=== PATIENT | male | born 1990 | race Two or more races ===

== ENCOUNTER 2018-01-13 18:39 | Emergency (ER) | payer BC ==
[2018-01-13 18:55] VITALS: BP 132/78
[2018-01-13] MEDS ORDERED: Ondansetron 4 MG/2 ML SDV IVPUSH ONE (19:07)
[2018-01-13] MEDS ORDERED: Sodium Chloride 0.9% 1,000 ML IV ONE (19:07)
--- NOTE | 2018-01-13 19:08 | EDM.PDOC ---
ED HPI GENERAL MEDICAL PROBLEM - General Chief Complaint: Abdominal Pain Stated Complaint: STOMACH PAIN AND VOMITTING Time Seen by Provider: 01/13/18 19:08 Source of Information: Reports: Patient - History of Present Illness INITIAL COMMENTS - FREE TEXT/NARRATIVE: HISTORY AND PHYSICAL: History of present illness: [Patient presents with abdominal pain left lower quadrant 4 out of 10 nonradiating worsened with deep palpation he has had some vomiting and diarrhea episodes no fever chills sweats no chest pain shortness breath headache dizziness palpitation no urine symptoms Symptoms began this morning and have increased throughout the day ] Review of systems: As per history of present illness and below otherwise all systems reviewed and negative. Past medical history: As per history of present illness and as reviewed below otherwise noncontributory. Surgical history: As per history of present illness and as reviewed below otherwise noncontributory. Social history: No reported history of drug or alcohol abuse. Family history: As per history of present illness and as reviewed below otherwise noncontributory. Physical exam: HEENT: Atraumatic, normocephalic, pupils reactive, negative for conjunctival pallor or scleral icterus, mucous membranes moist, throat clear, neck supple, nontender, trachea midline. Lungs: Clear to auscultation, breath sounds equal bilaterally, chest nontender. Heart: S1S2, regular, negative for clicks, rubs, or JVD. Abdomen: Soft, nondistended, nontender on the right lower quadrant no guarding or rebound is tender on deep palpation of the left lower quadrant again no guarding or rebound Negative for masses or hepatosplenomegaly. Negative for costovertebral tenderness. Pelvis: Stable nontender. Genitourinary: Deferred. Rectal: Deferred. Extremities: Atraumatic, negative for cords or calf pain. Neurovascular unremarkable. Neuro: Awake, alert, oriented. Cranial nerves II through XII unremarkable. Cerebellum unremarkable. Motor and sensory unremarkable throughout. Exam nonfocal. Diagnostics: [CBC CMP UA] Therapeutics: [Liter normal saline bolus Toradol 30 mg IV Zofran 8 mg IV Cipro 500 by mouth twice a day #20 no refill Zofr an ] Impression: [Gastroenteritis vomiting improved Abdominal pain -left lower quadrant-consistent with a clinical diverticulitis Definitive disposition and diagnosis as appropriate pending reevaluation and review of above. Abdomen Pain Score (Numeric/FACES): 8 - Related Data Allergies Allergy/AdvReac Type Severity Reaction Status Date / Time guaifenesin [From Robitussin] Allergy Airway Verified 01/13/18 18:57 Tightness Home Meds: Home Meds . [No Known Home Meds] 10/30/15 [History] Past Medical History - Past Health History Medical/Surgical History: Denies Medical/Surgical History - Past Surgical History HEENT Surgical History: Reports: Oral Surgery Social & Family History - Family History Family Medical History: Noncontributory - Tobacco Use Smoking Status *Q: Never Smoker - Caffeine Use Caffeine Use: Reports: None - Recreational Drug Use Recreational Drug Use: No ED ROS GENERAL - Review of Systems Review Of Systems: See Below ED EXAM, GENERAL - Physical Exam Exam: See Below Course - Vital Signs Last Recorded V/S: Last Vital Signs Temp 99.8 F 01/13/18 18:53 Pulse 100 01/13/18 18:53 Resp 18 01/13/18 18:53 BP 132/78 01/13/18 18:53 Pulse Ox 97 01/13/18 18:53 - Orders/Labs/Meds Orders: Active Orders 24 hr Category Date Time Status Abdomen Pelvis wo Cont [CT] Stat Exams 01/13/18 20:16 Taken UA W/MICROSCOPIC [URIN] Stat Lab 01/13/18 19:50 Ordered Labs: Laboratory Tests 01/13/18 01/13/18 01/13/18 Range/Units 19:15 19:15 19:50 WBC 10.14 (4.0-11.0) K/uL RBC 5.46 (4.50-5.90) M/uL Hgb 16.6 (13.0-17.0) g/dL Hct 47.1 (38.0-50.0) % MCV 86.3 (80.0-98.0) fL MCH 30.4 (27.0-32.0) pg MCHC 35.2 (31.0-37.0) g/dL RDW Std Deviation 39.6 (28.0-62.0) fl RDW Coeff of Wes 13 (11.0-15.0) % Plt Count 219 (150-400) K/uL MPV 9.20 (7.40-12.00) fL Neut % (Auto) 77.7 (48.0-80.0) % Lymph % (Auto) 9.8 L (16.0-40.0) % [place] % (Auto) 11.1 (0.0-15.0) % Eos % (Auto) 1.2 (0.0-7.0) % Baso % (Auto) 0.2 (0.0-1.5) % Neut # (Auto) 7.9 H (1.4-5.7) K/uL Lymph # (Auto) 1.0 (0.6-2.4) K/uL [place] # (Auto) 1.1 H (0.0-0.8) K/uL Eos # (Auto) 0.1 (0.0-0.7) K/uL Baso # (Auto) 0.0 (0.0-0.1) K/uL Nucleated RBC % 0.0 /100WBC Nucleated RBCs # 0 K/uL Sodium 140 (136-148) mmol/L Potassium 3.6 (3.5-5.1) mmol/L Chloride 104 (98-107) mmol/L Carbon Dioxide 25.5 (21.0-32.0) mmol/L BUN 18 (7.0-18.0) mg/dL Creatinine 1.5 H (0.8-1.3) mg/dL Est Cr Clr Drug Dosing 75.96 mL/min Estimated GFR (MDRD) 56.1 ml/min Glucose 89 (74-106) mg/dL Calcium 9.5 (8.5-10.1) mg/dL Total Bilirubin 0.6 (0.2-1.0) mg/dL AST 19 (15-37) IU/L ALT 38 (14-63) IU/L Alkaline Phosphatase 50 (46-116) U/L Total Protein 7.8 (6.4-8.2) g/dL Albumin 4.5 (3.4-5.0) g/dL Globulin 3.3 (2.0-3.5) g/dL Albumin/Globulin Ratio 1.4 (1.3-2.8) Lipase 81 (73-393) U/L Urine Color YELLOW Urine Appearance CLEAR Urine pH 6.0 (5.0-8.0) Ur Specific [place] 1.015 (1.001-1.035) Urine Protein NEGATIVE (NEGATIVE) mg/dL Urine Glucose (UA) NEGATIVE (NEGATIVE) mg/dL Urine Ketones NEGATIVE (NEGATIVE) mg/dL Urine Occult Blood NEGATIVE (NEGATIVE) Urine Nitrite NEGATIVE (NEGATIVE) Urine Bilirubin NEGATIVE (NEGATIVE) Urine Urobilinogen 0.2 (<2.0) EU/dL Ur Leukocyte Esterase NEGATIVE (NEGATIVE) Urine RBC 0-1 (0-2/HPF) Urine WBC 0-2 (0-5/HPF) Ur Epithelial Cells RARE (NONE-FEW) Urine Bacteria FEW (NEGATIVE) Meds: Medications Discontinued Medications Generic Name Dose Route Start Last Admin Trade Name Freq PRN Reason Stop Dose Admin Sodium Chloride 1,000 mls @ 999 mls/hr 01/13/18 19:07 01/13/18 19:21 Normal Saline IV 01/13/18 20:07 999 mls/hr STAT ONE Administration Ketorolac Tromethamine 30 mg 01/13/18 19:14 01/13/18 19:25 Toradol IVPUSH 01/13/18 19:15 30 mg ONETIME ONE Administration Ondansetron HCl 8 mg 01/13/18 19:07 01/13/18 19:22 Zofran IVPUSH 01/13/18 19:08 8 mg ONETIME ONE Administration Departure - Departure Time of Disposition: 21:15 Disposition: Home, Self-Care 01 Clinical Impression: Gastroenteritis, Abdominal pain - Discharge Information Referrals: PCP,None [Primary Care Provider] - Forms: ED Department Discharge Additional Instructions: Medication as prescribed Return if symptoms persist or worsen Follow-up with primary care in 2 weeks sooner as needed [facility] - Primary Care [address] [place] [address] The following information is given to patients seen in the emergency department who are being discharged to home. This information is to outline your options for follow-up care. We provide all patients seen in our emergency department with a follow-up referral. The need for follow-up, as well as the timing and circumstances, are variable depending upon the specifics of your emergency department visit. If you don't have a primary care physician on staff, we will provide you with a referral. We always advise you to contact your personal physician following an emergency department visit to inform them of the circumstance of the visit and for follow-up with them and/or the need for any referrals to a consulting specialist. The emergency department will also refer you to a specialist when appropriate. This referral assures that you have the opportunity for follow-up care with a specialist. All of these measure are taken in an effort to provide you with optimal care, which includes your follow-up. Under all circumstances we always encourage you to contact your private physician who remains a resource for coordinating your care. When calling for follow-up care, please make the office aware that this follow-up is from your recent emergency room visit. If for any reason you are refused follow-up, please contact the [facility] emergency department at and asked to speak to the emergency department charge nurse. - My Orders Last 24 Hours: My Active Orders 01/13/18 19:50 UA W/MICROSCOPIC [URIN] Stat 01/13/18 20:16 Abdomen Pelvis wo Cont [CT] Stat - Assessment/Plan Last 24 Hours: My Active Orders 01/13/18 19:50 UA W/MICROSCOPIC [URIN] Stat 01/13/18 20:16 Abdomen Pelvis wo Cont [CT] Stat
[2018-01-13] MEDS ORDERED: Ketorolac 30 MG/ML SDV IVPUSH ONE (19:14)
--- NOTE | 2018-01-16 15:16 | CT ---
EXAM DATE: 01/13/18 PATIENT'S AGE: 27 Patient: RAYMOND CARREON Facility: [place], [place] Site . Site : 1990 Study: CT Abdomen/Pelvis [id number]/10/2018 8:48:51 PM Ordering Physician: Bonnie Joseph Final Report: INDICATION: Abdominal pain, nausea, vomiting for 1 day TECHNIQUE: CT Abdomen and pelvis without i.v. contrast. Coronal and sagittal reformats were obtained. CONTRAST: None COMPARISON: None FINDINGS: Lower chest: Unremarkable. Liver: Unremarkable. Spleen: Unremarkable. Pancreas: Unremarkable. Gallbladder: Unremarkable. Kidney: Unremarkable. No kidney or ureteral stones or obstruction seen. Adrenal: Unremarkable. Bowel: Unremarkable. The appendix is normal in appearance and size. Vascular: Unremarkable. Lymph: Unremarkable. Peritoneum: Unremarkable. No pneumoperitoneum is seen. No significant ascites is noted. Pelvis: Unremarkable. Soft tissue: Unremarkable. Bone: Unremarkable for age. IMPRESSION: 1. Unremarkable with no CT correlate for the patient`s symptoms seen. Please note that all CT scans at this facility use dose modulation, iterative reconstruction, and/or weight-based dosing when appropriate to reduce radiation dose to as low as reasonably achievable. Dictated by: Bhaskar Del Rio MD @ 01/13/2018 21:02:48 (Electronic Signature) Report Signed by Proxy. [facility] CENTERChristel
== END 2018-01-13 21:40 | disposition home or self-care (01) ==
LOC: MW.ED 18:39
DX: K52.9 Noninfective gastroenteritis and colitis, unspecified (principal); Z88.8 Allergy status to other drugs, medicaments and biological substances
CPT/HCPCS: 74176; 80053; 81001; 83690; 85025; 96361; 96374; 96375; 99284; J1885; J2405; J7040

== ENCOUNTER 2018-03-07 12:35 | Emergency (ER) | payer OTHER, BC ==
[2018-03-07] MEDS ORDERED: Diphtheria,Pertussis(Acell),Tetanus Vaccine 0.5 ML Syringe IM ONE (12:48)
--- NOTE | 2018-03-07 12:48 | EDM.PDOC ---
ED HPI GENERAL MEDICAL PROBLEM - General Chief Complaint: Laceration Stated Complaint: RIGHT LEG CUT Time Seen by Provider: 03/07/18 12:36 Source of Information: Reports: Patient History Limitations: Reports: No Limitations - History of Present Illness INITIAL COMMENTS - FREE TEXT/NARRATIVE: HISTORY AND PHYSICAL: History of present illness: Patient is a 28-year-old male who presents to the emergency room with complaints of a laceration to his right anterior ankle. He states he was using a box office manager to open a large box when it slipped and cut his lower extremity. He is unsure of his last tetanus update. Review of systems: As per history of present illness and below otherwise all systems reviewed and negative. Past medical history: As per history of present illness and as reviewed below otherwise noncontributory. Surgical history: As per history of present illness and as reviewed below otherwise noncontributory. Social history: No reported history of drug or alcohol abuse. Family history: As per history of present illness and as reviewed below otherwise noncontributory. Physical exam: General: Well-developed and well-nourished 28-year-old male. Alert and oriented. Nontoxic appearing and in no acute distress. HEENT: Atraumatic, normocephalic, pupils equal and reactive bilaterally, negative for conjunctival pallor or scleral icterus, mucous membranes moist, throat clear, neck supple, nontender, trachea midline. No drooling or trismus noted. No meningeal signs Lungs: Clear to auscultation, breath sounds equal bilaterally, chest nontender. Heart: S1S2, regular rate and rhythm without overt murmur Abdomen: Soft, nondistended, nontender. Negative for masses or hepatosplenomegaly. Negative for costovertebral tenderness. Pelvis: Stable nontender. Genitourinary: Deferred. Rectal: Deferred. Skin: 3 cm laceration to the anterior portion of the right upper ankle. Linear with in the subcutaneous fat. Intact, warm, dry. No lesions or rashes noted. Extremities: Atraumatic, negative for cords or calf pain. Neurovascular unremarkable. Neuro: Awake, alert, oriented. Cranial nerves II through XII unremarkable. Cerebellum unremarkable. Motor and sensory unremarkable throughout. Exam nonfocal. Notes: Area was cleansed with chlorhexidine and wound wash was completed. 1% lidocaine was used to anesthetize the area, 3 mL's. Usual and customary procedures were followed for suture placement. 4-0 nylon, #5 sutures were placed. Patient tolerated well. Wound care was reviewed and discussed. Signs and symptoms would prompt him to return to the emergency room were reviewed. He voices understanding Griebel to plan of care. Denies any further questions or concerns at this time. Diagnostics: None Therapeutics: Tdap, 1% lidocaine Prescription: None Impression: Laceration Plan: 1 Keep the area clean and dry. Continue to monitor for signs of infection. Sutures to be removed in 7-10 days. 2. Tylenol and/or ibuprofen as needed for pain management. 3. Follow-up with your primary care provider in the next 1-2 days. Return to the ED as needed and as discussed. Definitive disposition and diagnosis as appropriate pending reevaluation and review of above. Laceration above R ankle Pain Score (Numeric/FACES): 1 - Related Data Allergies Allergy/AdvReac Type Severity Reaction Status Date / Time guaifenesin [From Robitussin] Allergy Airway Verified 03/07/18 12:47 Tightness Home Meds: Home Meds . [No Known Home Meds] 10/30/15 [History] Past Medical History - Past Health History Medical/Surgical History: Denies Medical/Surgical History - Past Surgical History HEENT Surgical History: Reports: Oral Surgery Social & Family History - Family History Family Medical History: Noncontributory - Caffeine Use Caffeine Use: Reports: None ED ROS GENERAL - Review of Systems Review Of Systems: ROS reveals no pertinent complaints other than HPI. ED EXAM, SKIN/RASH Exam: See Below (See dictation) ED SKIN PROCEDURES - Laceration/Wound Repair right ankle Lac/Wound length In cm: 3 Appearance: Subcutaneous, Linear Distal NVT: Neuro & Vascular Intact, No Tendon Injury Anesthetic Type: Local Local Anesthesia - Lidocaine (Xylocaine): 1% Plain Local Anesthetic Volume: 3cc Skin Prep: Chlorhexidine (Hibiciens), Saline, Sterile Drape Exploration/Debridement/Repair: Wound Explored, In a Bloodless Field, No Foreign Material Found Suture Size: 4-0 # of Sutures: 5 Suture Type: Nylon Sterile Dressing Applied: Provider Tetanus Status Addressed: Yes Complications: No Course - Vital Signs Last Recorded V/S: Last Vital Signs Temp 99.1 F 03/07/18 12:45 Pulse 92 03/07/18 12:45 Resp 16 03/07/18 12:45 BP 145/72 H 03/07/18 12:45 Pulse Ox 96 03/07/18 12:45 - Orders/Labs/Meds Orders: Active Orders 24 hr Category Date Time Status Vaccines to be Administered [RC] PER UNIT ROUTINE Care 03/07/18 12:48 Active Meds: Medications Discontinued Medications Generic Name Dose Route Start Last Admin Trade Name Freq PRN Reason Stop Dose Admin Diphtheria/Tetanus/Acell Pertussis 0.5 ml 03/07/18 12:48 Adacel IM 03/07/18 12:49 .ONCE ONE Lidocaine HCl 5 ml 03/07/18 12:48 Xylocaine-Mpf 1% INJECT 03/07/18 12:49 ONETIME ONE Departure - Departure Time of Disposition: 13:06 Disposition: Home, Self-Care 01 Clinical Impression: Laceration - Discharge Information Instructions: Laceration Care, Adult, [id number] Referrals: PCP,None [Primary Care Provider] - Forms: ED Department Discharge Additional Instructions: The following information is given to patients seen in the emergency department who are being discharged to home. This information is to outline your options for follow-up care. We provide all patients seen in our emergency department with a follow-up referral. The need for follow-up, as well as the timing and circumstances, are variable depending upon the specifics of your emergency department visit. If you don't have a primary care physician on staff, we will provide you with a referral. We always advise you to contact your personal physician following an emergency department visit to inform them of the circumstance of the visit and for follow-up with them and/or the need for any referrals to a consulting specialist. The emergency department will also refer you to a specialist when appropriate. This referral assures that you have the opportunity for follow-up care with a specialist. All of these measure are taken in an effort to provide you with optimal care, which includes your follow-up. Under all circumstances we always encourage you to contact your private physician who remains a resource for coordinating your care. When calling for follow-up care, please make the office aware that this follow-up is from your recent emergency room visit. If for any reason you are refused follow-up, please contact the [facility] Emergency Department at and asked to speak to the emergency department charge nurse. [facility] [address] [place] [id number] 1 Keep the area clean and dry. Continue to monitor for signs of infection. Sutures to be removed in 7-10 days. 2. Tylenol and/or ibuprofen as needed for pain management. 3. Follow-up with your primary care provider in the next 1-2 days. Return to the ED as needed and as discussed. - My Orders Last 24 Hours: My Active Orders 03/07/18 12:48 Vaccines to be Administered [RC] PER UNIT ROUTINE - Assessment/Plan Last 24 Hours: My Active Orders 03/07/18 12:48 Vaccines to be Administered [RC] PER UNIT ROUTINE
[2018-03-07 13:38] VITALS: BP 128/70
== END 2018-03-07 13:25 | disposition home or self-care (01) ==
LOC: MW.ED 12:35
DX: S91.011A Laceration without foreign body, right ankle, initial encounter (principal); Z23 Encounter for immunization; Z88.8 Allergy status to other drugs, medicaments and biological substances; W26.0XXA Contact with knife, initial encounter; Y99.0 Civilian activity done for income or pay
CPT/HCPCS: 90471; 90715; 99282-25

== ENCOUNTER 2018-12-19 08:35 | Emergency (ER) | payer BC, OTHER ==
[2018-12-19 08:46] VITALS: BP 137/75
[2018-12-19] MEDS ORDERED: Tetracaine HCl/PF 0.5% 4 ML Bottle EYEBOTH ONE (08:49)
[2018-12-19] MEDS ORDERED: Tetracaine HCl/PF 0.5% 4 ML Bottle ONE (08:50)
--- NOTE | 2018-12-19 09:24 | EDM.PDOC ---
ED HPI GENERAL MEDICAL PROBLEM - General Chief Complaint: Eye Problems Stated Complaint: EYE COMPLAINT Time Seen by Provider: 12/19/18 09:00 - History of Present Illness INITIAL COMMENTS - FREE TEXT/NARRATIVE: 28 y/o male here for left eye pain. 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 Feels like there's a foreign object. Injected conjunctiva bilaterally. Movement intact. Sensitive to light. Has been able to wear contact lenses due to eye pain. No discharge. left eye Pain Score (Numeric/FACES): 8 - Related Data Allergies Allergy/AdvReac Type Severity Reaction Status Date / Time guaifenesin [From Robitussin] Allergy Airway Verified 12/19/18 08:44 Tightness Home Meds: Home Meds Erythromycin Base [Erythromycin 0.5% Ophth Oint] 1 applic TOP BID #1 tube [Rx] Past Medical History - Past Health History Medical/Surgical History: Denies Medical/Surgical History - Infectious Disease History Infectious Disease History: Reports: Chicken Pox - Past Surgical History HEENT Surgical History: Reports: Oral Surgery Social & Family History - Family History Family Medical History: Noncontributory Oncologic: Reports: Ovarian - Tobacco Use Smoking Status *Q: Current Every Day Smoker Years of Tobacco use: 10 Packs/Tins Daily: 0.5 - Caffeine Use Caffeine Use: Reports: None - Recreational Drug Use Recreational Drug Use: No ED ROS GENERAL - Review of Systems Review Of Systems: ROS reveals no pertinent complaints other than HPI. ED EXAM GENERAL W FULL EYE - Physical Exam Exam: See Below General Appearance: Alert, WD/WN, No Apparent Distress Eyelids: Bilateral: Normal Appearance (no foreign body) Conjunctiva & Sclera: Bilateral: Injected Cornea Exam: Left: Cloudy Cornea Extraocular Movements: Bilateral: Intact Pupils: Normal Accommodation Pupillary Reaction: Bilateral: Brisk Respiratory/Chest: No Respiratory Distress Cardiovascular: Regular Rate, Rhythm Course - Vital Signs Text/Narrative:: No foreign objects in eyes. There is a small right corneal abrasion at 6 o' clock. Last Recorded V/S: Last Vital Signs Temp 36.6 C 12/19/18 08:42 Pulse 91 12/19/18 08:42 Resp 16 12/19/18 08:42 BP 137/75 12/19/18 08:42 Pulse Ox 98 12/19/18 08:42 - Orders/Labs/Meds Meds: Medications Discontinued Medications Generic Name Dose Route Start Last Admin Trade Name Taz PRN Reason Stop Dose Admin Tetracaine HCl 1 ml 12/19/18 08:49 12/19/18 08:55 Tetracaine 0.5% Steri-Unit Kiley EYEBOTH 12/19/18 08:50 1 ml ASDIRECTED ONE Administration Tetracaine HCl Confirm 12/19/18 08:50 12/19/18 08:59 Tetracaine 0.5% Steri-Unit Kiley Administered 12/19/18 08:51 Not Given Dose 4 ml .ROUTE .STK-MED ONE Departure - Departure Time of Disposition: 09:21 Disposition: Home, Self-Care 01 Clinical Impression: Corneal abrasion - Discharge Information *PRESCRIPTION DRUG MONITORING PROGRAM REVIEWED*: Not Applicable *COPY OF PRESCRIPTION DRUG MONITORING REPORT IN PATIENT TALISHA: Not Applicable Prescriptions: Erythromycin Base [Erythromycin 0.5% Ophth Oint] 1 applic TOP BID #1 tube Instructions: Corneal Abrasion, [id number] Referrals: PCP,Unknown [Primary Care Provider] - Forms: ED Department Discharge Additional Instructions: The following information is given to patients seen in the emergency department who are being discharged to home. This information is to outline your options for follow-up care. We provide all patients seen in our emergency department with a follow-up referral. The need for follow-up, as well as the timing and circumstances, are variable depending upon the specifics of your emergency department visit. If you don't have a primary care physician on staff, we will provide you with a referral. We always advise you to contact your personal physician following an emergency department visit to inform them of the circumstance of the visit and for follow-up with them and/or the need for any referrals to a consulting specialist. The emergency department will also refer you to a specialist when appropriate. This referral assures that you have the opportunity for follow-up care with a specialist. All of these measure are taken in an effort to provide you with optimal care, which includes your follow-up. Under all circumstances we always encourage you to contact your private physician who remains a resource for coordinating your care. When calling for follow-up care, please make the office aware that this follow-up is from your recent emergency room visit. If for any reason you are refused follow-up, please contact the [facility] Emergency Department at and asked to speak to the emergency department charge nurse. Follow-up with Ophthalmology today with Dr. Rush.
== END 2018-12-19 09:29 | disposition home or self-care (01) ==
LOC: MW.ED 08:35
DX: S05.02XA Injury of conjunctiva and corneal abrasion without foreign body, left eye, initial encounter (principal); F17.210 Nicotine dependence, cigarettes, uncomplicated; Z98.890 Other specified postprocedural states; Z88.8 Allergy status to other drugs, medicaments and biological substances; X58.XXXA Exposure to other specified factors, initial encounter; Y99.0 Civilian activity done for income or pay
CPT/HCPCS: 99283

== ENCOUNTER 2019-02-12 11:35 | Emergency (ER) | payer OTHER, BC ==
[2019-02-12 11:45] VITALS: BP 128/69
[2019-02-12] MEDS ORDERED: Bacitracin Oint 1 GM U/D Packet TOP ONE (11:51)
--- NOTE | 2019-02-12 12:12 | EDM.PDOC ---
ED HPI GENERAL MEDICAL PROBLEM - General Chief Complaint: Laceration Stated Complaint: LACERATION Time Seen by Provider: 02/12/19 11:38 Source of Information: Reports: Patient History Limitations: Reports: No Limitations - History of Present Illness INITIAL COMMENTS - FREE TEXT/NARRATIVE: HISTORY AND PHYSICAL: History of present illness: And is a 28-year-old male presenting to the emergency room today for a laceration on his right hand. Patient states he sustained the laceration on his right middle digit while at work this morning. He states that while he was trying to put a windshield in, his hands slipped and his middle digit was cut open on a piece of metal. He states he "cleaned it up at work" and found no debris in it. He has not taken any ibuprofen or Tylenol. Review of system As per history of present illness and below otherwise all systems reviewed and negative. Past medical history: As per history of present illness and as reviewed below otherwise noncontributory. Surgical history: As per history of present illness and as reviewed below otherwise noncontributory. Social history: See social history for further information Family history: As per history of present illness and as reviewed below otherwise noncontributory. Physical exam: General: Nourished and well-developed 28-year-old male. Alert and orientated. Nontoxic in appearance. Vital signs stable and reviewed by me. HEENT: Atraumatic, normocephalic, pupils equal and reactive bilaterally, negative for conjunctival pallor or scleral icterus, mucous membranes moist, trachea midline. No drooling or trismus noted. No meningeal signs. No hot potato voice noted. Lungs: Clear to auscultation, breath sounds equal bilaterally, chest nontender. Heart: S1S2, regular rate and rhythm without overt murmur Abdomen: Soft, nondistended, nontender. Skin: 1.5 cm laceration to the dorsal aspect of the right mid third digit below the MIP joint. Otherwise skin is intact, warm, dry. No lesions or rashes noted. Extremities: See skin, otherwise moves all extremities per self without difficulty or deficits, negative for cords or calf pain. Neurovascular unremarkable. Neuro: Awake, alert, oriented. Cranial nerves II through XII unremarkable. Cerebellum unremarkable. Motor and sensory unremarkable throughout. Exam nonfocal. Notes: Chlorhexidine and would wash was used for wound irrigation/cleansing. 1% lidocaine was used to anesthetize the area. Usual and customary procedures were used for suture placement. 4-0 nylon, #3 interrupted sutures were placed. Patient tolerated well. Bacitracin nonstick dressing was applied. Supportive care measures were reviewed and discussed. Voices understanding and is agreeable to plan of care. Denies any further questions or concerns at this time. Diagnostics: None Therapeutics: Wound care, bacitracin dressing, 1% lidocaine Prescription: None Impression: Laceration Plan: 1. Keep the area clean and dry. Continue to monitor for signs of infection. Sutures to be removed in 7-10 days. 2. Tylenol and/or ibuprofen as needed for pain management. 3. Please follow-up with your primary care provider in the next 1-2 days. Return to the ED as needed and as discussed. Definitive disposition and diagnosis as appropriate pending reevaluation and review of above. - Related Data Allergies Allergy/AdvReac Type Severity Reaction Status Date / Time guaifenesin [From Robitussin] Allergy Airway Verified 02/12/19 11:42 Tightness Home Meds: Home Meds Erythromycin Base [Erythromycin 0.5% Ophth Oint] 1 applic TOP BID #1 tube [Rx] Past Medical History - Past Health History Medical/Surgical History: Denies Medical/Surgical History - Infectious Disease History Infectious Disease History: Reports: Chicken Pox - Past Surgical History HEENT Surgical History: Reports: Oral Surgery Social & Family History - Family History Family Medical History: Noncontributory Oncologic: Reports: Ovarian - Tobacco Use Smoking Status *Q: Current Every Day Smoker Years of Tobacco use: 20 Packs/Tins Daily: 0.5 - Caffeine Use Caffeine Use: Reports: Coffee - Recreational Drug Use Recreational Drug Use: No ED ROS GENERAL - Review of Systems Review Of Systems: ROS reveals no pertinent complaints other than HPI. ED EXAM, SKIN/RASH Exam: See Below (See dictation) ED SKIN PROCEDURES - Laceration/Wound Repair Right middle digit Appearance: Subcutaneous, Linear Distal NVT: Neuro & Vascular Intact, No Tendon Injury Anesthetic Type: Local Local Anesthesia - Lidocaine (Xylocaine): 1% Plain Local Anesthetic Volume: 2cc Skin Prep: Chlorhexidine (Hibiciens), Saline, Sterile Drape Saline Irrigation (cc's): 25 Exploration/Debridement/Repair: Wound Explored, In a Bloodless Field, No Foreign Material Found Closed with: Sutures Lac/Wound length In cm: 1.5 Suture Size: 4-0 # of Sutures: 3 Suture Type: Nylon, Interrupted, Simple Drain Placement: No Sterile Dressing Applied: Provider Tetanus Status Addressed: Yes Complications: No Course - Vital Signs Last Recorded V/S: Last Vital Signs Temp 98.6 F 02/12/19 11:42 Pulse 84 02/12/19 11:42 Resp 16 02/12/19 11:42 BP 128/69 02/12/19 11:42 Pulse Ox 98 02/12/19 11:42 - Orders/Labs/Meds Meds: Medications Discontinued Medications Generic Name Dose Route Start Last Admin Trade Name Freq PRN Reason Stop Dose Admin Bacitracin 1 dose 02/12/19 11:51 02/12/19 11:56 Bacitracin Oint 1 Gm TOP 02/12/19 11:52 1 dose ONETIME ONE Administration Lidocaine HCl 5 ml 02/12/19 11:49 02/12/19 11:56 Xylocaine-Mpf 1% INJECT 02/12/19 11:50 5 ml ONETIME ONE Administration Departure - Departure Time of Disposition: 12:12 Disposition: Home, Self-Care 01 Clinical Impression: Laceration - Discharge Information Instructions: Laceration Care, Adult, [id number] Referrals: PCP,None [Primary Care Provider] - Forms: ED Department Discharge Additional Instructions: The following information is given to patients seen in the emergency department who are being discharged to home. This information is to outline your options for follow-up care. We provide all patients seen in our emergency department with a follow-up referral. The need for follow-up, as well as the timing and circumstances, are variable depending upon the specifics of your emergency department visit. If you don't have a primary care physician on staff, we will provide you with a referral. We always advise you to contact your personal physician following an emergency department visit to inform them of the circumstance of the visit and for follow-up with them and/or the need for any referrals to a consulting specialist. The emergency department will also refer you to a specialist when appropriate. This referral assures that you have the opportunity for follow-up care with a specialist. All of these measure are taken in an effort to provide you with optimal care, which includes your follow-up. Under all circumstances we always encourage you to contact your private physician who remains a resource for coordinating your care. When calling for follow-up care, please make the office aware that this follow-up is from your recent emergency room visit. If for any reason you are refused follow-up, please contact the [facility] Emergency Department at and asked to speak to the emergency department charge nurse. [facility] [address] [place] [id number] [facility] [address] [place] [id number] 1. Keep the area clean and dry. Continue to monitor for signs of infection. Sutures to be removed in 7-10 days. 2. Tylenol and/or ibuprofen as needed for pain management. 3. Please follow-up with your primary care provider in the next 1-2 days. Return to the ED as needed and as discussed.
== END 2019-02-12 12:21 | disposition home or self-care (01) ==
LOC: MW.ED 11:35
DX: S61.212A Laceration without foreign body of right middle finger without damage to nail, initial encounter (principal); F17.210 Nicotine dependence, cigarettes, uncomplicated; W26.8XXA Contact with other sharp object(s), not elsewhere classified, initial encounter; Y99.0 Civilian activity done for income or pay
CPT/HCPCS: 12001; 99282; J2001

== ENCOUNTER 2019-06-28 10:43 | Emergency (ER) | payer BC, OTHER ==
[2019-06-28] MEDS ORDERED: Ketorolac 30 MG/ML SDV IVPUSH ONE (10:54)
[2019-06-28] MEDS ORDERED: Ondansetron 4 MG/2 ML SDV IVPUSH ONE (10:54)
[2019-06-28] MEDS ORDERED: Sodium Chloride 0.9% 1,000 ML IV ONE (10:55)
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
--- NOTE | 2019-06-28 11:51 | CR ---
Chest: Frontal view of the chest was obtained. Comparison: No prior chest imaging. Heart size and mediastinum are normal. Lungs are clear. Bony structures are grossly intact. Impression: 1. Nothing acute is appreciated on frontal chest x-ray. Diagnostic code #1 This report was dictated in [place] Standard Time
--- NOTE | 2019-06-28 11:57 | CR ---
Lumbar spine: AP, lateral and coned-down lateral view centered to the lumbosacral junction were obtained. Vertebral body heights and disc spaces are maintained. Pedicles are intact. Transverse and spinous processes are intact. Sacroiliac joints are within normal limits. Minimal retrolisthesis is noted at L4-L5 which is most likely chronic. No fracture is appreciated. Impression: 1. Mild retrolisthesis at L4-L5 which is most likely chronic. 2. Nothing acute is appreciated on 3 view lumbar spine study. Diagnostic code #2 This report was dictated in [place] Standard Time
--- NOTE | 2019-06-28 11:57 | CR ---
Left knee: AP, lateral and sunrise patellar views of the left knee were obtained. Comparison: No prior knee exam. Medial and lateral joint compartments are maintained in height. No joint effusion is seen. Patellofemoral joint appears within normal limits. No fracture or other abnormality is appreciated. Impression: 1. No abnormality is identified on left knee exam. Diagnostic code #1 This report was dictated in [place] Standard Time
--- NOTE | 2019-06-28 11:57 | CT ---
CT cervical spine Technique: Multiple axial sections were obtained from above the C1 inferiorly through T3. Reconstructed sagittal and coronal images were reviewed. Comparison: No prior cervical spine imaging. Findings: Vertebral body heights and disc spaces are maintained. Minimal scattered anterior endplate osteophytes are seen. No bony central or bony neural foraminal stenosis is seen. No fracture or subluxation is seen. Impression: 1. Minimal endplate osteophytes. 2. Nothing acute is appreciated on CT study of the cervical spine. Diagnostic code #1 This report was dictated in [place] Standard Time
[2019-06-28 11:58] LABS: BLOOD UREA NITROGEN,BUN 22 mg/dL (7.0-18.0); CARBON DIOXIDE,CO2 28.6 mmol/L (21.0-32.0); CHLORIDE,CL 104 mmol/L (98-107); GLUCOSE RANDOM 80 mg/dL (74-106); POTASSIUM,K 4.3 mmol/L (3.5-5.1); SODIUM,NA 141 mmol/L (136-148)
--- NOTE | 2019-06-28 12:06 | CR ---
Left shoulder: 3 views of the left shoulder were obtained. Comparison: No prior shoulder exam. Glenohumeral joint and acromioclavicular joint appears within normal limits. No fracture or other bony abnormality is seen. Impression: 1. No abnormality is identified on left shoulder exam. Diagnostic code #1 This report was dictated in [place] Standard Time
--- NOTE | 2019-06-28 12:17 | CT ---
Head CT Technique: Multiple axial sections through the brain were obtained. Intravenous contrast was not utilized. Comparison: No prior intracranial imaging. Findings: Ventricles along with basal cisterns and sulci over the convexities appear within normal limits for the patient's age. No abnormal parenchymal densities are seen. No evidence of intracranial hemorrhage. No midline shift or mass effect is seen. Bone window settings were reviewed. Visualized paranasal sinuses show nothing acute. Visualized mastoid sinuses show nothing acute. No acute calvarial abnormality is appreciated. Impression: 1. Nothing acute is appreciated on noncontrast head CT exam. Diagnostic code #1 This report was dictated in [place] Standard Time
[2019-06-28 19:44] VITALS: BP 131/68; PULSE 82
== END 2019-06-28 12:42 | disposition home or self-care (01) ==
LOC: MW.ED 10:43
DX: S20.221A Contusion of right back wall of thorax, initial encounter (principal); S00.83XA Contusion of other part of head, initial encounter; S40.811A Abrasion of right upper arm, initial encounter; S80.212A Abrasion, left knee, initial encounter; S30.811A Abrasion of abdominal wall, initial encounter; S40.211A Abrasion of right shoulder, initial encounter; F17.210 Nicotine dependence, cigarettes, uncomplicated; Z88.8 Allergy status to other drugs, medicaments and biological substances; V43.52XA Car driver injured in collision with other type car in traffic accident, initial encounter; Y92.410 Unspecified street and highway as the place of occurrence of the external cause
CPT/HCPCS: 36415; 70450; 71045; 72100; 72125; 73030; 73562; 80053; 81001; 85025; 96361; 96374; 96375; 99285; J1885; J2405; J7030

== ENCOUNTER 2019-08-20 11:34 | Emergency (ER) | payer BC, OTHER ==
--- NOTE | 2019-08-20 12:42 | EDM.PDOC ---
ED HPI GENERAL MEDICAL PROBLEM - General Chief Complaint: Genitourinary Problem Stated Complaint: STD Time Seen by Provider: 08/20/19 12:14 Source of Information: Reports: Patient History Limitations: Reports: No Limitations - History of Present Illness INITIAL COMMENTS - FREE TEXT/NARRATIVE: HISTORY AND PHYSICAL: History of present illness: Is a 29-year-old male who presents the ED today with concern of desire for STD screening. Patient states he is concerned because his current partner had a prior boyfriend who is in custodial. Patient states that over the course of the last month he periodically has had left testicular pain with ejaculation but states that this has not been ongoing over the past 2 weeks. Patient denies any penile drainage or any current testicular pain and states he has not had pain for 2 weeks. Patient states he is concerned for STDs because his significant other has discomfort with intercourse. Patient denies any other symptoms or concerns. Patient denies fever, chills, chest pain, shortness of breath, or cough. Denies headache, neck stiff ness, change in vision, syncope, or near syncope. Denies nausea, vomiting, abdominal pain, diarrhea, constipation, or dysuria. Has not noted any blood in urine or stool. Patient has been eating and drinking appropriately. Review of systems: As per history of present illness and below otherwise all systems reviewed and negative. Past medical history: As per history of present illness and as reviewed below otherwise noncontributory. Surgical history: As per history of present illness and as reviewed below otherwise noncontributory. Social history: See social history for further information Family history: As per history of present illness and as reviewed below otherwise noncontributory. Physical exam: General: Patient is alert, oriented, and in no acute distress. Patient sitting comfortably on exam table. HEENT: Atraumatic, normocephalic, pupils equal and reactive bilaterally, negative for conjunctival pallor or scleral icterus, mucous membranes moist, TMs normal bilaterally, throat clear, neck supple, nontender, trachea midline. No drooling or trismus noted. No meningeal signs. No hot potato voice noted. Lungs: Clear to auscultation, breath sounds equal bilaterally, chest nontender. Heart: S1S2, regular rate and rhythm without overt murmur Abdomen: Soft, nondistended, nontender. Negative for masses or hepatosplenomegaly. Negative for costovertebral tenderness. Pelvis: Stable nontender. Genitourinary: Deferred. Rectal: Deferred. Skin: Intact, warm, dry. No lesions or rashes noted. Extremities: Atraumatic, negative for cords or calf pain. Neurovascular unremarkable. Neuro: Awake, alert, oriented. Cranial nerves II through XII unremarkable. Cerebellum unremarkable. Motor and sensory unremarkable throughout. Exam nonfocal. Notes: Discussed importance for follow-up with a primary care provider for additional STD screening. Voices understanding and is agreeable to plan of care. Denies any further questions or concerns at this time. Diagnostics: UA, Gonorrhea and chlamydia Therapeutics: None Prescription: None Impression: Encounter for STD screening Plan: 1. Follow-up with a primary care provider for further STD testing if you desire this as discussed. 2. Return to the ED as needed and as discussed. Definitive disposition and diagnosis as appropriate pending reevaluation and review of above. groin Pain Score (Numeric/FACES): 2 - Related Data Allergies Allergy/AdvReac Type Severity Reaction Status Date / Time guaifenesin [From Robitussin] Allergy Airway Verified 06/28/19 10:57 Tightness Home Meds: Home Meds . [No Known Home Meds] 08/20/19 [History] Past Medical History - Past Health History Medical/Surgical History: Denies Medical/Surgical History - Infectious Disease History Infectious Disease History: Reports: Chicken Pox - Past Surgical History HEENT Surgical History: Reports: Oral Surgery Social & Family History - Family History Family Medical History: Noncontributory Oncologic: Reports: Ovarian - Tobacco Use Smoking Status *Q: Current Every Day Smoker Years of Tobacco use: 12 Packs/Tins Daily: 0.5 - Caffeine Use Caffeine Use: Reports: Coffee - Recreational Drug Use Recreational Drug Use: No ED ROS GENERAL - Review of Systems Review Of Systems: Comprehensive ROS is negative, except as noted in HPI. ED EXAM, GENERAL - Physical Exam Exam: See Below (see dictation) Course - Vital Signs Last Recorded V/S: Last Vital Signs Temp 97.9 F 08/20/19 12:20 Pulse 92 08/20/19 12:20 Resp 16 08/20/19 12:20 BP 140/66 08/20/19 12:20 Pulse Ox 98 08/20/19 12:20 - Orders/Labs/Meds Orders: Active Orders 24 hr Category Date Time Status CHLAMYDIA AND GONORRHEA BY [facility] Stat Lab 08/20/19 12:00 Received Labs: Laboratory Tests 08/20/19 Range/Units 12:00 Urine Color YELLOW Urine Appearance CLEAR Urine pH 7.0 (5.0-8.0) Ur Specific [place] 1.020 (1.001-1.035) Urine Protein NEGATIVE (NEGATIVE) mg/dL Urine Glucose (UA) NEGATIVE (NEGATIVE) mg/dL Urine Ketones NEGATIVE (NEGATIVE) mg/dL Urine Occult Blood NEGATIVE (NEGATIVE) Urine Nitrite NEGATIVE (NEGATIVE) Urine Bilirubin NEGATIVE (NEGATIVE) Urine Urobilinogen 1.0 (<2.0) EU/dL Ur Leukocyte Esterase NEGATIVE (NEGATIVE) Departure - Departure Time of Disposition: 12:39 Disposition: Home, Self-Care 01 Clinical Impression: Screening for STD (sexually transmitted disease) - Discharge Information Referrals: PCP,None [Primary Care Provider] - Additional Instructions: The following information is given to patients seen in the emergency department who are being discharged to home. This information is to outline your options for follow-up care. We provide all patients seen in our emergency department with a follow-up referral. The need for follow-up, as well as the timing and circumstances, are variable depending upon the specifics of your emergency department visit. If you don't have a primary care physician on staff, we will provide you with a referral. We always advise you to contact your personal physician following an emergency department visit to inform them of the circumstance of the visit and for follow-up with them and/or the need for any referrals to a consulting specialist. The emergency department will also refer you to a specialist when appropriate. This referral assures that you have the opportunity for follow-up care with a specialist. All of these measure are taken in an effort to provide you with optimal care, which includes your follow-up. Under all circumstances we always encourage you to contact your private physician who remains a resource for coordinating your care. When calling for follow-up care, please make the office aware that this follow-up is from your recent emergency room visit. If for any reason you are refused follow-up, please contact the [facility] Emergency Department at and asked to speak to the emergency department charge nurse. [facility] [address] [place] [id number] [facility] [address] [place] [address] 1. Follow-up with a primary care provider for further STD testing if you desire this as discussed. 2. Return to the ED as needed and as discussed. Sepsis Event Note - Evaluation Sepsis Screening Result: No Definite Risk - Focused Exam Vital Signs: Vital Signs Temp Pulse Resp BP Pulse Ox 08/20/19 12:20 97.9 F 92 16 140/66 98 Date Exam was Performed: 08/20/19 Time Exam was Performed: 12:38 - My Orders Last 24 Hours: My Active Orders 08/20/19 12:00 CHLAMYDIA AND GONORRHEA BY [facility] Stat - Assessment/Plan Last 24 Hours: My Active Orders 08/20/19 12:00 CHLAMYDIA AND GONORRHEA BY [facility] Stat
[2019-08-20 13:24] VITALS: BP 136/78; PULSE 94
== END 2019-08-20 12:45 | disposition home or self-care (01) ==
LOC: MW.ED 11:34
DX: Z20.2 Contact with and (suspected) exposure to infections with a predominantly sexual mode of transmission (principal); F17.210 Nicotine dependence, cigarettes, uncomplicated; Z88.8 Allergy status to other drugs, medicaments and biological substances
CPT/HCPCS: 81003; 87491; 87591; 99283

== ENCOUNTER 2022-10-24 02:11 | Emergency (ER) | payer BC, OTHER ==
[2022-10-24] MEDS ORDERED: Sodium Chloride 0.9% 2.5 ML Syringe FLUSH PRN (02:26)
[2022-10-24] MEDS ORDERED: Aspirin 81 MG Tab.Chew PO ONE (02:26)
[2022-10-24] MEDS ORDERED: Sodium Chloride 0.9% 20 ML SDV IV PRN (02:26)
[2022-10-24] MEDS ORDERED: Sodium Chloride 0.9% 10 ML Syringe FLUSH PRN (02:26)
[2022-10-24] MEDS ORDERED: Diazepam 2 MG Tab PO ONE (02:27)
[2022-10-24 02:36] LABS: BASOPHILS PERCENT AUTO 0.3 % (0.0-1.5); EOSINOPHILS ABSOLUTE AUTO 0.5 K/uL (0.0-0.7); EOSINOPHILS PERCENT AUTO 5.3 % (0.0-7.0); HEMATOCRIT 43.8 % (38.0-50.0); HEMOGLOBIN 15.3 g/dL (13.0-17.0); LYMPHOCYTES PERCENT AUTO 40.4 % (16.0-40.0); MEAN CORPUSCULAR HEMOGLOBIN 30.6 pg (27.0-32.0); MEAN CORPUSCULAR HGB CONC 34.9 g/dL (31.0-37.0); MEAN CORPUSCULAR VOLUME 87.6 fL (80.0-98.0); MONOCYTES ABSOLUTE AUTO 0.9 K/uL (0.0-0.8); MONOCYTES PERCENT AUTO 9.5 % (0.0-15.0); NEUTROPHILS ABSOLUTE AUTO 4.4 K/uL (1.4-5.7); NEUTROPHILS PERCENT AUTO 44.5 % (48.0-80.0); NRBC ABSOLUTE 0 K/uL; PLATELET COUNT,PLT 225 K/uL (150-400)
[2022-10-24 02:56] LABS: A/G RATIO 1.2 (0.9-1.6); ALANINE AMINOTRANSFERASE,ALT 45 IU/L (14-63); ALBUMIN 3.9 g/dL (3.4-5.0); ALKALINE PHOSPHATASE 57 U/L (46-116); ASPARTATE AMNIOTRANSFERASE,AST 16 IU/L (15-37); BILIRUBIN TOTAL 0.3 mg/dL (0.2-1.0); BLOOD UREA NITROGEN,BUN 18 mg/dL (7.0-18.0); CALCIUM 8.4 mg/dL (8.5-10.1); CARBON DIOXIDE,CO2 25.7 mmol/L (21.0-32.0); CHLORIDE,CL 105 mmol/L (98-107); CREATININE 1.3 mg/dL (0.8-1.3); EST CRCL DRUG DOSING (CG) 84.23 mL/min; GLUCOSE RANDOM 130 mg/dL (74-106); LIPASE 97 U/L (73-393); PROTEIN TOTAL,TP 7.1 g/dL (6.4-8.2); SODIUM,NA 141 mmol/L (136-148)
[2022-10-24 02:57] LABS: ESTIMATED GFR 75 mL/min (>60)
[2022-10-24 03:27] VITALS: BP 135/66; PULSE 72
== END 2022-10-24 03:30 | disposition home or self-care (01) ==
LOC: MW.ED 02:11
DX: R07.89 Other chest pain (principal); R20.0 Anesthesia of skin; Z88.8 Allergy status to other drugs, medicaments and biological substances
CPT/HCPCS: 36415; 71045; 80053; 83690; 84484; 85025; 85379; 93005; 99285; A9270; J3490; 93010; 99283

== ENCOUNTER 2024-07-11 15:12 | Emergency (ER) | payer SELFPAY ==
[2024-07-11] MEDS: Ketorolac 30 MG/ML SDV IVPUSH ONE (15:55)
[2024-07-11] MEDS: Ondansetron 4 MG/2 ML SDV IVPUSH ONE (15:55)
[2024-07-11] MEDS: Sodium Chloride 0.9% 1,000 ML IV ONE (15:55)
[2024-07-11 16:07] LABS: BASOPHILS ABSOLUTE AUTO 0.05 K/uL (0.00-0.20); BASOPHILS PERCENT AUTO 0.6 % (0.0-1.0); EOSINOPHILS ABSOLUTE AUTO 0.31 K/uL (0.00-0.45); EOSINOPHILS PERCENT AUTO 3.6 % (0.0-6.0); HEMATOCRIT 45.7 % (42.0-52.0); HEMOGLOBIN 16.1 g/dL (14.0-18.0); IMMATURE GRAN ABSOLUTE AUTO 0.04 K/uL (0.00-0.05); IMMATURE GRAN PERCENT AUTO 0.5 % (0.0-0.4); LYMPHOCYTES ABSOLUTE AUTO 2.94 K/uL (1.00-4.80); LYMPHOCYTES PERCENT AUTO 34.3 % (24.0-44.0); MEAN CORPUSCULAR HEMOGLOBIN 29.9 pg (28.0-32.0); MEAN CORPUSCULAR HGB CONC 35.2 g/dL (32.0-36.0); MEAN CORPUSCULAR VOLUME 84.9 fL (83.0-99.0); MEAN PLATELET VOLUME 8.7 fL (9.4-12.4); MONOCYTES ABSOLUTE AUTO 0.89 K/uL (0.00-0.80); MONOCYTES PERCENT AUTO 10.4 % (0.0-8.0); NEUTROPHILS ABSOLUTE AUTO 4.33 K/uL (1.80-7.70); NEUTROPHILS PERCENT AUTO 50.6 % (41.0-71.0); PLATELET COUNT,PLT 276 K/uL (150-400); RED BLOOD CELL COUNT 5.38 M/uL (4.52-5.90); WHITE BLOOD CELL COUNT,WBC 8.56 K/uL (3.9-11.3)
[2024-07-11 16:31] LABS: A/G RATIO 1.3 (0.9-1.6); ALBUMIN 4.2 g/dL (3.4-5.0); BILIRUBIN TOTAL 0.2 mg/dL (0.2-1.0); CARBON DIOXIDE,CO2 23.3 mmol/L (21.0-32.0); CREATININE 1.2 mg/dL (0.8-1.3); EST CRCL DRUG DOSING (CG) 89.56 mL/min; POTASSIUM,K 4.2 mmol/L (3.5-5.1); PROTEIN TOTAL,TP 7.4 g/dL (6.4-8.2)
[2024-07-11 17:10] LABS: APPEARANCE,URINE CLEAR; BILIRUBIN,URINE NEGATIVE (NEGATIVE); COLOR,URINE YELLOW; GLUCOSE,URINE NEGATIVE (NEGATIVE); KETONES,URINE NEGATIVE (NEGATIVE); LEUKOCYTE ESTERASE,URINE NEGATIVE (NEGATIVE); NITRITE,URINE NEGATIVE (NEGATIVE); OCCULT BLOOD,URINE NEGATIVE (NEGATIVE); PH,URINE 6.5 (5.0-8.0); PROTEIN,URINE NEGATIVE (NEGATIVE); UROBILINOGEN,URINE <2.0 EU/dL (<2.0)
[2024-07-11 17:35] VITALS: BP 130/89; PULSE 72
== END 2024-07-11 17:34 | disposition home or self-care (01) ==
LOC: MW.ED 15:12
DX: K59.00 Constipation, unspecified (principal); F17.210 Nicotine dependence, cigarettes, uncomplicated; Z88.8 Allergy status to other drugs, medicaments and biological substances; Z75.8 Other problems related to medical facilities and other health care
CPT/HCPCS: 36415; 74176; 80053; 81003; 83690; 85025; 96361; 96374; 96375; 99284; J1885; J2405; J7030